=== PATIENT | male | born 1990 | race American Indian/Alaskan Native ===

== ENCOUNTER 2020-12-09 00:28 | Emergency (ER) | payer SELFPAY ==
[2020-12-09 00:47] VITALS: BP 125/81
== END 2020-12-09 05:31 | disposition left against medical advice (07) ==
LOC: ED 00:28
DX: F41.9 Anxiety disorder, unspecified (principal); Z53.21 Procedure and treatment not carried out due to patient leaving prior to being seen by health care provider